=== PATIENT | male | born 1965 | race African-American/Black ===

== ENCOUNTER → 2018-07-28 | Outpatient (CLI) | payer OTHER ==
--- NOTE | 2018-07-29 09:09 | RADIOLOGY REPORT (SQ) ---
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 TECHNIQUE: Blood glucose level was verified. Above dose of FDG was injected intravenously. 2-D seg mented attenuation correction images were obtained from the base of the skull to the midthighs. Nonc ontrast CT images were obtained for attenuation correction and fusion with emission images. CT image s were performed without oral or intravenous contrast and are not sensitive for parenchymal lesions. A series of overlapping emission PET images were obtained. Images reviewed and manipulated at [facility] work station by the radiologist. Images stored on PACS. LIMITATIONS: None. FINDINGS: HEAD AND NECK: There is a punctate focus of increased uptake in the right pharyngeal tonsi l without discernible mass, SUV 4.4. This is abnormal but nonspecific. CHEST: No areas of abnormal metabolic activity in the chest. ABDOMEN AND PELVIS: Along the posterior wall of the gastric antrum, a 6 x 2.5 cm mass is present edwin [place] through the serosa and extending into adjacent fat. This is in the area of previously biopsied malignancy, and has SUV of 6.6. A 2 x 1 cm lymph node is present between the gastric antrum and the main portal vein on axial image 1 24/255 with SUV 3.1. A 1.7 x 1 cm lymph node is present along the medial wall of the 2nd/ 3rd portion of the duodenum on a xial image 138/255 with SUV of 1.3. There is a subcentimeter focus of increased uptake along mesenteric fat/ small bowel loops just super ior to the umbilicus on diffusion image 151. This difficult to measure on the CT images, but has SUV of 7.5. This could represent a mesenteric metastatic nodule. PROXIMAL LOWER EXTREMITIES: No areas of abnormal metabolic activity in the soft tissues of the lower extremities. BONES: No abnormal metabolic activity in the visualized skeleton. ADDITIONAL CT FINDINGS: No additional significant findings on the noncontrast CT images. OTHER: Liver background activity 1.7 SUV. Blood pool background activity 0.9 SUV IMPRESSION: Malignant mass along the dorsal aspect of the gastric antrum with adjacent metabolically active lymph nodes Finding of punctate increased uptake amount bowel loops in the paraumbilical region, question metasta tic deposit in mesenteric fat TECHNICAL DOCUMENTATION: JOB ID: [id number] [email or web address]- All Rights Reserved Reading location - IP/workstation name: [email or web address]
== END ==
LOC: RAD 18:35
PROVIDERS: ATTEND Family Medicine
DX: C16.3 Malignant neoplasm of pyloric antrum (principal)
CPT/HCPCS: 78815; A9552

== ENCOUNTER 2018-08-12 07:12 | Day surgery (SDC) | payer OTHER ==
[~2018-08-12 07:12] MED LIST: 1/2 NORMAL SALINE 1,000 ML IV PRN; CEFAZOLIN 1 GM/D5W RTU 1 GM/50 ML RTUPB IV ONE; CEFAZOLIN 1 GM/D5W RTU 1 GM/50 ML RTUPB IV PRN; DIAZEPAM 5 MG TABLET ONE; DIAZEPAM 5 MG TABLET PO PRN; OXYCODONE-ACETAMINOPHEN 5-325 MG TABLET ONE; OXYCODONE-ACETAMINOPHEN 5-325 MG TABLET PO PRN
--- NOTE | 2018-08-12 08:15 | RADIOLOGY REPORT (SQ) ---
EXAM DESCRIPTION: CHEST SINGLE VIEW COMPLETED DATE/TIME: 08/12/2018 8:04 am REASON FOR STUDY: PRE-OP COMPARISON: Prior PET-CT 07/28/2018 EXAM PARAMETERS: NUMBER OF VIEWS: One view. TECHNIQUE: Single frontal radiographic view of the chest acquired. RADIATION DOSE: NA LIMITATIONS: None. FINDINGS: LUNGS AND PLEURA: No opacities, masses or pneumothorax. No pleural effusion. MEDIASTINUM AND HILAR STRUCTURES: No masses. Contour normal. HEART AND VASCULAR STRUCTURES: Heart normal in size. Normal vasculature. BONES: No acute findings. HARDWARE: None in the chest. OTHER: No other significant finding. IMPRESSION: NO ACUTE RADIOGRAPHIC FINDING IN THE CHEST. TECHNICAL DOCUMENTATION: JOB ID: [id number] [employer]- All Rights Reserved Reading location - IP/workstation name: [email or web address]
[2018-08-12 08:42] LABS: ABSOLUTE BASOPHILS # (AUTO) 0.1 10^3/uL (0.0-0.2); ABSOLUTE LYMPHOCYTES (AUTO) 1.9 10^3/uL (0.5-4.7); ABSOLUTE MONOCYTES (AUTO) 0.9 10^3/uL (0.1-1.4); ABSOLUTE NEUT (AUTO) 7.4 10^3/uL (1.7-8.2); BASOPHILS % (AUTO) 0.8 % (0-2); EOSINOPHILS % (AUTO) 0.3 % (0-6); HEMATOCRIT 37.6 % (37.9-51.0); HEMOGLOBIN 13.1 g/dL (13.5-17.0); LYMPHOCYTES % (AUTO) 18.6 % (13-45); MEAN CORPUSCULAR HEMOGLOBIN 30.2 pg (27.0-33.4); MEAN CORPUSCULAR HGB CONC 34.8 g/dL (32.0-36.0); MEAN CORPUSCULAR VOLUME 87 fl (80-97); MONOCYTES % (AUTO) 8.7 % (3-13); PLATELET COUNT 325 10^3/uL (150-450); RED BLOOD COUNT 4.34 10^6/uL (4.35-5.55); RED CELL DISTRIBUTION WIDTH 17.2 % (11.5-14.0); SEGMENTED NEUTROPHILS % (AUTO) 71.6 % (42-78); TOTAL CELLS COUNTED % (AUTO) 100 %; WHITE BLOOD COUNT 10.4 10^3/uL (4.0-10.5)
[2018-08-12 08:54] LABS: ANION GAP 8 (5-19); BLOOD UREA NITROGEN 12 mg/dL (7-20); CALCIUM 9.5 mg/dL (8.4-10.2); CARBON DIOXIDE 27 mmol/L (22-30); CHLORIDE 106 mmol/L (98-107); GLUCOSE 103 mg/dL (75-110); POTASSIUM 3.3 mmol/L (3.6-5.0); SODIUM 141.3 mmol/L (137-145)
[2018-08-12 09:10] LABS: ANISOCYTOSIS 1+; TOXIC GRANULATION SLIGHT; TOXIC VACUOLATION PRESENT
[2018-08-12 09:11] LABS: OVALOCYTES SLIGHT; PLATELET COMMENT ADEQUATE; POIKILOCYTOSIS SLIGHT; TARGET CELLS SLIGHT; TEAR DROP CELLS SLIGHT
[2018-08-12] MEDS ORDERED: FENTANYL CITRATE INJ/PF 100 MCG/2 ML AMPUL ONE (10:43)
[2018-08-12] MEDS ORDERED: BACITRACIN INJ 50,000 UNIT VIAL ONE (10:43)
[2018-08-12] MEDS ORDERED: MIDAZOLAM 2 MG/2 ML INJ ONE (10:43)
[2018-08-12] MEDS ORDERED: LIDOCAINE 0.5% INJ-PF (5 MG/ML) 50 ML SDV ONE (10:45)
--- NOTE | 2018-08-12 11:52 | Discharge Summary ---
Discharge Summary (SDC) - Discharge Final Diagnosis: #1 gastric cancer. Date of Surgery: 08/12/18 Discharge Date: 08/12/18 Condition: Good Treatment or Instructions: Discharge home [after recovery per ASU criteria]. Diet ,,as tolerated, when fully awake advance as tolerated. Activities within moderation encouraged. Follow up in my office by appointment in about [1 week]. Call for appointment. Leave wounds [covered], [keep clean and dry, until office visit in 1 week]. Hold of on school/work [until evaluation in office]. Meds per med rec. Percocet. May shower [in 48 hrs], [try to keep operated area as dry as possible]. Prescriptions: Oxycodone HCl/Acetaminophen [Percocet 5-325 mg Tablet] 1 tab PO ASDIR PRN #15 tab PRN Reason: Referrals: LUCRECIA HARVEY DO [Primary Care Provider] - Discharge Diet: As Tolerated Respiratory Treatments at Home: Deep Breathing/Coughing Discharge Activity: Activity As Tolerated Report the Following to Your Physician Immediately: Shortness of Breath, Unusual Bleeding
--- NOTE | 2018-08-12 11:54 | Operative Report ---
Operative Report DATE OF SURGERY: 08/12/18 PREOPERATIVE DIAGNOSIS: #1 gastric cancer. POSTOPERATIVE DIAGNOSIS: #1 gastric cancer. OPERATION: 1. Ultrasound evaluation of the right internal jugular vein. 2. Insertion of Port-A-Cath via real-time access in the right internal jugular vein. 3. Angiogram and interpretation. SURGEON: CHICHI FRYE SHIELD OPERATOR: None. ANESTHESIA: Moderate Sedation TISSUE REMOVED OR ALTERED: Not applicable. COMPLICATIONS: None. ESTIMATED BLOOD LOSS: 10 mL. INTRAOPERATIVE FINDINGS: Of a satisfactory right internal jugular vein estimated to be about 1.5 cm in diameter. Satisfactory access under ultrasound guidance. Satisfactory position of the catheter with the tip stone of the right atrium. Smooth flow of contrast through the superior vena cava, right atrium noted on angiogram. Easy egress of blood and ingress of heparinized solution through the. Postprocedure limited chest x-ray shows no untoward findings. PROCEDURE: After obtaining informed consent, the patient was taken to the Recovery Rn and positioned supine. The [right] neck and chest were prepared with chlorhexidine and draped out with sterile linen. After the " universal timeout", in which it was verified that the patient continued to receive antibiotic, the procedure commenced. A steriley sheathed ultrasound probe was used to evaluate the [right] internal jugular vein. Local anesthesia was infiltrated adjacent to the probe. Access into the [right] internal jugular vein was obtained using a micropuncture needle, followed by micropuncture wire and then a micropuncture catheter. This was followed by introduction of a 0.035 guidewire the tip of which was placed down into the inferior vena cava . The port sites was marked , locally anesthetized and incision made. Dissection now proceeded to the deep subcutaneous subcutaneous tissues so that a pocket for the port was made. Meticulous hemostasis was secured and the catheter was tunneled between the 2 incisions. Proximally, the catheter was now positioned using a peel-away sheath. Distally the catheter was tailored to an appropriate length and then mated to the port using the contained fixating device. The port was now placed in the pocket and the catheter optimally positioned. The port was accessed with a Goodson needle and an angiogram done under digital subtraction. The findings as dictated. With adequate and satisfactory positioning, the lumen of the chamber were irrigated with heparinized solution. The wounds were now closed using interrupted 3-0 PDS to the subcutaneous tissues and a continuous subcuticular suture of 4-0 Monocryl to the skin. These are reinforced with Steri-Strips over benzoin and then dressings applied. Time: 0.1 minute. Dose: 5.5 m Gy Contrast: 5 Mls. Isovue 300. Copies of the dictated operative report for Dr. Chichi Diop MD.
--- NOTE | 2018-08-12 12:45 | RADIOLOGY REPORT (SQ) ---
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 FLUOROSCOPY TIME: 0.1 minutes 5 digital fluoroscopic images saved to PACS. TECHNIQUE: Intra-operative images acquired during surgical procedure to evaluate progress. NUMBER OF IMAGES: 5 digital fluoroscopic images LIMITATIONS: None. FINDINGS: Intra procedural imaging and fluoro during placement of a right-sided permanent central li ne with the tip in the superior vena cava/upper right atrium. IMPRESSION: IMAGE(S) OBTAINED DURING PROCEDURE. COMMENT: Quality ID 145: Final reports for procedures using fluoroscopy that document radiation exp osure indices, or exposure time and number of fluorographic images (if radiation exposure indices are not available) Please consult full operative report of the attending physician for description of the procedure. TECHNICAL DOCUMENTATION: JOB ID: [id number] [employer]- All Rights Reserved Reading location - IP/workstation name: [email or web address]
--- NOTE | 2018-08-12 12:45 | RADIOLOGY REPORT (SQ) ---
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 FLUOROSCOPY TIME: 0.1 minutes 5 digital fluoroscopic images saved to PACS. TECHNIQUE: Intra-operative images acquired during surgical procedure to evaluate progress. NUMBER OF IMAGES: 5 digital fluoroscopic images LIMITATIONS: None. FINDINGS: Intra procedural imaging and fluoro during placement of a right-sided permanent central li ne with the tip in the superior vena cava/upper right atrium. IMPRESSION: IMAGE(S) OBTAINED DURING PROCEDURE. COMMENT: Quality ID 145: Final reports for procedures using fluoroscopy that document radiation exp osure indices, or exposure time and number of fluorographic images (if radiation exposure indices are not available) Please consult full operative report of the attending physician for description of the procedure. TECHNICAL DOCUMENTATION: JOB ID: [id number] [email or web address]- All Rights Reserved Reading location - IP/workstation name: [email or web address]
[2018-08-12 13:15] VITALS: BP 160/109
== END 2018-08-12 13:05 | disposition home or self-care (01) ==
LOC: CCL 07:12
PROVIDERS: ATTEND Surgery
DX: C16.9 Malignant neoplasm of stomach, unspecified (principal); I10 Essential (primary) hypertension; F17.210 Nicotine dependence, cigarettes, uncomplicated; Z79.899 Other long term (current) drug therapy; Z79.82 Long term (current) use of aspirin
CPT/HCPCS: 36415; 85025; 80048; 36561; 76937; 77001; 71045; C1752; C1788; Q9967; J2250; J3490 ×2; J0690; J3010; J1644

== ENCOUNTER → 2018-11-07 | Outpatient (CLI) | payer OTHER ==
--- NOTE | 2018-11-07 09:30 | RADIOLOGY REPORT (SQ) ---
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 RENAL FUNCTION: Creatinine 0.7 TECHNIQUE: CT scan of the chest performed using helical scanning technique with dynamic intravenous contrast injection. Images reviewed with lung, soft tissue and bone windows. Reconstructed coronal a nd sagittal MPR images reviewed. All images stored on PACS. CT scan of the abdomen and pelvis performed with intravenous and with oral contrastusing helical scan arun technique with dynamic intravenous contrast injection. Images reviewed with lung, soft tissue a nd bone windows. Reconstructed coronal and sagittal MPR images reviewed. Delayed images for evaluat ion of the urinary system also acquired and evaluated. All images stored on PACS. All CT scanners at this facility use dose modulation, iterative reconstruction, and/or weight based d osing when appropriate to reduce radiation dose to as low as reasonably achievable (ALARA). [facility]: Dose Right [facility]: CareDose [facility]: Dose Right [facility]: Teradose 4D [facility]: [employer] Technologies RADIATION DOSE: CT Rad equipment meets quality standard of care and radiation dose reduction techniq ues were employed. CTDIvol: 6.0 - 8.0 mGy. DLP: 1041 mGy-cm. . LIMITATIONS: None. FINDINGS: CHEST: LUNGS AND PLEURA: No opacities, nodules, masses. No pneumothorax. No effusions. HILAR AND MEDIASTINAL STRUCTURES: No identified masses or abnormal nodes. HEART AND VASCULAR STRUCTURES: No aneurysm or dissection. No central pulmonary emboli. No pericardi al effusion. HARDWARE: Right-sided permanent central line tip superior vena cava THYROID AND OTHER SOFT TISSUES: No masses. No adenopathy. BONES: No significant finding. OTHER: No other significant finding. ABDOMEN AND PELVIS: LIVER: Normal size. No masses. No dilated ducts. SPLEEN: Normal size. No focal lesions. PANCREAS: No masses. No significant calcifications. No adjacent inflammation or peripancreatic fluid collections. Pancreatic duct not dilated. GALLBLADDER: No identified stones by CT criteria. No inflammatory changes to suggest cholecystitis. ADRENAL GLANDS: No significant masses or asymmetry. RIGHT KIDNEY AND URETER: No solid masses. No significant calcification. No hydronephrosis or hydroure ter. LEFT KIDNEY AND URETER: No solid masses. No significant calcification. No hydronephrosis or hydrouret er. AORTA AND VESSELS: No aneurysm. No dissection. Renal arteries, SMA, celiac without stenosis. RETROPERITONEUM: Persistent 1.6 x 0.8 cm lymph node just ventral to the main portal vein on axial jaleesa ge (was 2 x 1.1 cm on PET-CT 07/28/2018). The other lymph node identified on PET-CT near the pa ncreatic head 1.7 x 1.1 cm in size is no longer identified on the current scan. BOWEL AND PERITONEAL CAVITY: Patient drank oral contrast. No CT evidence of bowel obstruction or christina e intraperitoneal air or fluid. No mesenteric adenopathy. APPENDIX: Normal. ABDOMINAL WALL: No masses. No hernias. PELVIS: The right bladder trigone and right lateral bladder wall are abnormal with diffuse thickening worrisome for bladder tumor. This is best shown on post-contrast axial image 68 and delayed post co ntrast axial image 70. No pelvic adenopathy. Prostate normal size. Rectum unremarkable. No free p elvic fluid. BONES: No significant or acute findings. OTHER: No other significant finding. IMPRESSION: Unremarkable CT chest Decrease in size of kalpana hepatis lymph node compared to PET-CT. Abnormal right bladder trigone and right bladder lateral wall worrisome for tumor. TECHNICAL DOCUMENTATION: JOB ID: [id number] Quality ID # 436: Final reports with documentation of one or more dose reduction techniques (e.g., Au tomated exposure control, adjustment of the mA and/or kV according to patient size, use of iterative reconstruction technique) 2010 [employer]- All Rights Reserved Reading location - IP/workstation name: [email or web address]
== END ==
LOC: RAD 08:25
PROVIDERS: ATTEND Nurse Practitioner Family
DX: C16.1 Malignant neoplasm of fundus of stomach (principal)
CPT/HCPCS: 71260; 74177

== ENCOUNTER → 2019-03-11 | Outpatient (CLI) | payer OTHER ==
--- NOTE | 2019-03-12 09:54 | RADIOLOGY REPORT (SQ) ---
EXAM DESCRIPTION: PET CT SKULL/THIGH COMPLETED DATE/TIME: 03/11/2019 9:07 pm REASON FOR STUDY: Z85.00 PERSONAL HISTORY OF MALIGNANT NEOPLASM OF [facility] DGSTV ORG Z85.00 PERSONAL H ISTORY OF MALIGNANT NEOPLASM OF [facility] DGSTV COMPARISON: PET from 07/28/[address] of the chest, abdomen and pelvis with contrast from 11/07/2018. RADIONUCLIDE AND DOSE: 8.9 mCi F18 FDG The route of agent administration: Intravenous FASTING BLOOD SUGAR: 83 mg/dl CONTRAST TYPE AND DOSE: No CT contrast given. TECHNIQUE: Blood glucose level was verified. Above dose of FDG was injected intravenously. 2-D seg mented attenuation correction images were obtained from the base of the skull to the midthighs. Nonc ontrast CT images were obtained for attenuation correction and fusion with emission images. CT image s were performed without oral or intravenous contrast and are not sensitive for parenchymal lesions. A series of overlapping emission PET images were obtained. Images reviewed and manipulated at [facility] work station by the radiologist. Images stored on PACS. LIMITATIONS: None. FINDINGS: HEAD AND NECK: No areas of abnormal metabolic activity in the soft tissues of the head and neck. CHEST: No areas of abnormal metabolic activity in the chest. ABDOMEN AND PELVIS: The liver demonstrates heterogeneous non focal FDG uptake with an average SUV of 2.4. The area of masslike thickening in the gastric antrum (image 144 of series 3) that measures trace roximately 4.2 x 3.1 cm demonstrates avid FDG uptake with a maximum SUV of 12. There is an enlarged perigastric lymph node (image 134 of series 3) that measures 2 x 1.2 cm and demonstrates avid FDG upt dhiraj with a maximum SUV of 6) the lymph node has increased in size from the 11/07/2018 CT. There is ph ysiologic activity throughout the gastrointestinal and genitourinary tracts. The activity in the corina dder limits evaluation of the area of abnormality involving the trigone and right lateral wall of the urinary bladder. PROXIMAL LOWER EXTREMITIES: No areas of abnormal metabolic activity in the soft tissues of the lower extremities. BONES: No areas of abnormal metabolic activity in the imaged axial and appendicular skeleton. ADDITIONAL CT FINDINGS: The tip of the right IJ single-lumen port projects within the SVC. There is atherosclerotic calcification of the aortic annulus. There is no pericardial effusion. The morphology of the liver is non cirrhotic. The spleen is normal in size. There is no adrenal mas s or an abnormality of the pancreas and gallbladder that is discernible on noncontrast enhanced CT. T here is no hydronephrosis, nephrolithiasis, hydroureter or ureterolithiasis. The abdominal aorta is n ormal in caliber. There is no retroperitoneal adenopathy, hemorrhage or mass. The prostate gland is enlarged and heterogeneous. There is colonic diverticulosis without diverticulitis. The appendix is normal. There is no mesenteric adenopathy, free intraperitoneal fluid, or mesenteric/ omental infla mmation. OTHER: No other significant findings. IMPRESSION: Hypermetabolic area of masslike thickening involving the gastric antrum (image 144 of se carrillo 3) that has increased in size compared to the 11/07/2018. The perigastric lymph node on image 13 4 of series 3 also demonstrates avid FDG uptake and it has increased in size from the prior CT. COMMENT: The activity in the bladder limits evaluation of the area of abnormality involving the trig one and right lateral wall of the urinary bladder. TECHNICAL DOCUMENTATION: JOB ID: [id number] [employer]- All Rights Reserved Reading location - IP/workstation name: [email or web address]
== END ==
LOC: RAD 11:10
PROVIDERS: ATTEND Internal Medicine Gastroenterology
DX: Z85.00 Personal history of malignant neoplasm of unspecified digestive organ (principal); K57.90 Diverticulosis of intestine, part unspecified, without perforation or abscess without bleeding
CPT/HCPCS: 78815; A9552

== ENCOUNTER → 2019-07-22 | Outpatient (CLI) | payer OTHER ==
--- NOTE | 2019-07-23 08:41 | RADIOLOGY REPORT (SQ) ---
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 TECHNIQUE: Blood glucose level was verified. Above dose of FDG was injected intravenously. 2-D seg mented attenuation correction images were obtained from the base of the skull to the midthighs. Nonc ontrast CT images were obtained for attenuation correction and fusion with emission images. CT image s were performed without oral or intravenous contrast and are not sensitive for parenchymal lesions. A series of overlapping emission PET images were obtained. Images reviewed and manipulated at [facility] work station by the radiologist. Images stored on PACS. LIMITATIONS: None. FINDINGS: HEAD AND NECK: Along the left posterior triangle axial image 40, level 5B, a 9 x 9 mm lymp h node is present with SUV 3.4. CHEST: A right retrocrural 1.2 x 1 cm lymph node is present on axial image 133, with SUV of 4.5. ABDOMEN AND PELVIS: Patient is post partial gastrectomy and gastrojejunostomy 04/25/2019. At the surg ical site, a 4 x 4 cm mass is present on axial image 143, with SUV of 10 worrisome for residual tumor . A 3 x 1.5 cm lymph node is present ventral to the confluence of the superior mesenteric vein and sple johann vein on axial image 136, with SUV of 7. A 1.4 x 1 cm left para-aortic lymph node is present on axial image 154, with SUV of 5 PROXIMAL LOWER EXTREMITIES: No areas of abnormal metabolic activity in the soft tissues of the lower extremities. BONES: No abnormal metabolic activity in the visualized skeleton. ADDITIONAL CT FINDINGS: Right maxillary chronic inflammation. Right-sided permanent central line tip superior vena cava. OTHER: Liver background activity 2.3 SUV. Blood pool background activity 1.5 SUV. IMPRESSION: Hypermetabolic mass at the gastrojejunostomy site worrisome for residual tumor. Hypermetabolic lymph nodes as above TECHNICAL DOCUMENTATION: JOB ID: [id number] [employer]- All Rights Reserved Reading location - IP/workstation name: [email or web address]
== END ==
LOC: RAD 08:30
PROVIDERS: ATTEND Internal Medicine
DX: C16.3 Malignant neoplasm of pyloric antrum (principal)
CPT/HCPCS: 78815; A9552

== ENCOUNTER 2019-07-29 10:55 | Day surgery (SDC) | payer OTHER ==
[2019-07-29 11:34] LABS: HEMATOCRIT 39.1 % (37.9-51.0); HEMOGLOBIN 13.5 g/dL (13.5-17.0); MEAN CORPUSCULAR HEMOGLOBIN 32.5 pg (27.0-33.4); MEAN CORPUSCULAR HGB CONC 34.4 g/dL (32.0-36.0); MEAN CORPUSCULAR VOLUME 94 fl (80-97); PLATELET COUNT 299 10^3/uL (150-450); RED BLOOD COUNT 4.14 10^6/uL (4.35-5.55); WHITE BLOOD COUNT 8.2 10^3/uL (4.0-10.5)
[2019-07-29 11:40] LABS: INTERNATIONAL RATION (INR) 1.03; PROTHROMBIN TIME 13.5 SEC (11.4-15.4)
[2019-07-29 11:41] LABS: PARTIAL THROMBOPLASTIN TIME 73.5 SEC (23.5-35.8)
[2019-07-29 12:00] LABS: BLOOD UREA NITROGEN 12 mg/dL (7-20)
[2019-07-29] MEDS ORDERED: MIDAZOLAM 2 MG/2 ML INJ ONE (12:47)
[2019-07-29] MEDS ORDERED: FENTANYL CITRATE INJ/PF 100 MCG/2 ML AMPUL ONE (12:47)
--- NOTE | 2019-07-29 16:02 | RADIOLOGY REPORT (SQ) ---
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 FLUORO TIME: 13.3 seconds. 240 images submitted to PACS. LIMITATIONS: None. PROCEDURE: The procedure, risks, benefits, and alternatives were discussed with the patient in the p reprocedural area, and all questions were answered. Informed consent was obtained verbally and in wri ting. The patient was then brought to the CT suite, positioned prone on the CT gurney, and a time-out was p erformed. After that, axial images of the abdomen were obtained for targeting of the left periaortic lymph nodes that demonstrated increased FDG uptake on the correlative PET. Based on review of the a xial images an appropriate access site was selected on the skin. The area around selected access site was then prepped and draped with 2% chlorhexidine utilizing andre dard sterile technique. After that, the access site was infiltrated with 1% lidocaine and an incisio n was made in the skin with a #11 blade. A 17 gauge coaxial needle was then advanced through the skin incision and into the periaortic lymph node utilizing CT fluoroscopic guidance. After that, the inne r stylet of the coaxial needle was removed and 5 18 gauge core samples were obtained - the samples we re collected and submitted to cytopathology in formalin. The coaxial needle was then removed and axial images of the abdomen were repeated and reviewed ; the images demonstrated no acute biopsy-related complication. The patient tolerated the procedure well without immediate complication. At the end of the procedure the patient's condition was unchanged from the preprocedural baseline. IV conscious sedation was administered at the direction of the performing physician by a tyler camejo. 1 milligrams of Versed and 50 micrograms of fentanyl. Physiologic monitoring was provided befor e, during, and after sedation. The total sedation time was 30 minutes. Documentation of [id number] time the performing proceduralist spent monitoring the patient: 10 min utes. IMPRESSION: Successful CT-guided biopsy of the left periaortic lymph nodes as detailed above. COMMENT: Patient medication list reviewed: Yes- Quality ID# 130:Eligible professional attests to doc umenting in the medical record they obtained, updated, or reviewed the patient's current medications. Quality ID #76: The patient was prepped and draped using maximum sterile barrier technique including cap, mask, sterile gown, sterile gloves, a large sterile sheet, hand hygiene, and 2% Chlorhexidine fo r cutaneous antisepsis. When ultrasound is used, sterile ultrasound techniques are followed requiring sterile gel and sterile probes. Quality ID 145: Final reports for procedures using fluoroscopy that document radiation exposure young amira, or exposure time and number of fluorographic images (if radiation exposure indices are not avail able) Quality ID# 436: Final reports with documentation of one or more dose reduction techniques (e.g., Aut omated exposure control, adjustment of the mA and/or kV according to patient size, use of iterative r econstruction technique) TECHNICAL DOCUMENTATION: JOB ID: [id number] 2010 [employer]- All Rights Reserved Reading location - IP/workstation name: [email or web address]
[2019-07-29 16:43] VITALS: BP 122/82
== END 2019-07-29 15:20 | disposition home or self-care (01) ==
LOC: RAD 10:55
PROVIDERS: ATTEND Internal Medicine
DX: C16.1 Malignant neoplasm of fundus of stomach (principal); N18.9 Chronic kidney disease, unspecified; D69.59 Other secondary thrombocytopenia
CPT/HCPCS: 36415; 84520; 82565; 85027; 85610; 85730; 88305 ×2; 77012; 49180; J2250; J3010; J1642; 88342